=== PATIENT | male | born 1970 | race Caucasian/White ===

== ENCOUNTER 2016-08-03 12:23 | Observation (INO) ==
[2016-08-03] MEDS ORDERED: ZOFRAN IV ONE (12:50)
[2016-08-03] MEDS ORDERED: NS 1,000 ML IV ONE (12:50)
--- NOTE | 2016-08-03 12:58 | EKG Report ---
Test Performed on : 08/03/2016 12:42:34 PM Test Reason : CHEST PAIN Blood Pressure : / mmHG Vent. Rate : 074 BPM Atrial Rate : 074 BPM P-R Int : 154 ms QRS Dur : 076 ms QT Int : 406 ms P-R-T Axes : 076 073 083 degrees QTc Int : 450 ms Normal sinus rhythm. Septal infarct , age undetermined Abnormal ECG No previous ECGs available Unconfirmed Result
[2016-08-03 13:11] LABS: MANUAL DIFF NEEDED? NO
[2016-08-03 13:13] LABS: BASO% 0.7 % (0.0-0.8); EOS# 0.08 X1000 (0.0-0.7); EOS% 1.9 % (0.0-10.0); HEMATOCRIT 44.4 % (42.0-52.0); HEMOGLOBIN 15.3 g/dL (14.0-18.0); IMM GRAN# 0.02 X1000 (0.0-0.04); IMM GRAN% 0.5 % (0.0-0.5); LYMPH# 1.21 X1000 (1.2-3.4); LYMPH% 29.3 % (20.5-51.1); MCH 32.4 PG (27-31); MCHC 34.5 g/dL (33-37); MCV 94.1 FL (81-99); MONO# 0.24 X1000 (0.11-0.59); MONO% 5.8 % (1.7-9.3); MPV 9.4 FL (7.4-10.4); NEUT% 61.8 % (42.2-75.2); PLT 155 X1000 (130-400); RBC 4.72 XMIL (4.7-6.1)
[2016-08-03] MEDS ORDERED: NICODERM PATCH TD ONE (13:18)
--- NOTE | 2016-08-03 13:27 | Diag Imaging Result Doc PS360 ---
EXAM: CHEST-PORTABLE HISTORY: CP TECHNIQUE: Portable AP COMPARISON: None. FINDINGS: The lungs are hyperexpanded. The pulmonary vessels are small. There is scarring in the mid right lung. No cardiomegaly. No pneumonia. No pleural effusions identified. IMPRESSION: The lungs are hyperexpanded and the patient may have emphysema. Electronically signed by Rik Rodriguez 08/03/2016 1:25 PM
[2016-08-03 13:29] LABS: INR 0.88 (0.86-1.15); PROTIME 12.3 Seconds (12.1-15.5); PTT PL 29.8 Seconds (22.6-43.9)
[2016-08-03 13:33] LABS: AGAP 15; ALBUMIN 3.9 g/dL (3.5-5.0); ALKALINE PHOSPHATASE 74 U/L (32-122); BUN 8 mg/dL (8-22); CALCIUM 8.1 mg/dL (8.8-10.2); CHLORIDE 107 mmol/L (98-107); COSMO 295; GOT 202 U/L (10-34); GPT 121 U/L (10-44); LIPASE 69 U/L (13-60); MAGNESIUM 2.1 mg/dL (1.5-2.7); POTASSIUM 3.9 mmol/L (3.5-5.1); SODIUM 148 mmol/L (136-145); TCO2 27 mmol/L (25-35)
[2016-08-03 13:40] LABS: CK PROFILE 220 U/L (24-204)
[2016-08-03 13:59] LABS: CK INDEX 0.5 (0.0-2.5); CK-MB 1.14 ng/mL (0.0-5.0)
[2016-08-03 14:18] LABS: UR AMPHETAMINES QUAL NONE DETECTED (NONE DETECT); UR BARBITUATES QUAL NONE DETECTED (NONE DETECT); UR BENZODIAZEPIN QUAL NONE DETECTED (NONE DETECT); UR CANNABINOIDS QUAL NONE DETECTED (NONE DETECT); UR COCAINE QUAL NONE DETECTED (NONE DETECT); UR MDMA QUAL NONE DETECTED (NONE DETECT); UR METHADONE QUAL NONE DETECTED (NONE DETECT); UR METHAMPHETAMINE QUAL NONE DETECTED (NONE DETECT); UR OPIATES QUAL NONE DETECTED (NONE DETECT); UR OXYCODONE QUAL NONE DETECTED (NONE DETECT); UR PCP QUAL NONE DETECTED (NONE DETECT); UR TCA QUAL NONE DETECTED (NONE DETECT)
[2016-08-03 14:19] LABS: BILIRUBIN URINE NEGATIVE (NEGATIVE); BLOOD URINE NEGATIVE (NEGATIVE); CLARITY SL. CLOUDY (CLEAR); COLOR YELLOW; GLUCOSE URINE NEGATIVE (NEGATIVE); LEUKOCYTES URINE TRACE (NEGATIVE); NITRITE URINE NEGATIVE (NEGATIVE); PROTEIN URINE TRACE mg/dL (NEGATIVE); SP GRAVITY URINE 1.015; UROBILINOGEN URINE 4+(12 mg/dL)
[2016-08-03 14:28] LABS: URINE RBC <10 /HPF (<10); URINE WBC <10 /HPF (<10)
[2016-08-03 14:29] LABS: URINE CAST NONE SEEN /LPF; URINE CRYSTAL NONE SEEN /HPF; URINE CULTURE PL NEEDED? YES; URINE EPITHELIAL CELLS <10 /HPF (<10); URINE SOURCE CLEAN CATCH
--- NOTE | 2016-08-03 14:45 | Diag Imaging Result Doc PS360 ---
EXAM: ANGIOGRAM/PULMONARY ARTERIES - 08/03/2016 HISTORY: CP with elevated D-dimer TECHNIQUE: With intravenous contrast. Dose reduction protocol. COMPARISON: None. FINDINGS: There are no discrete pulmonary artery filling defects which are distinguishable for mild artifacts identified. There are severe bullous emphysematous changes, particularly at the right upper lobe. There is mild dependent atelectasis. There is no consolidation, pleural effusion, or pneumothorax identified. Included sections of upper abdomen show hepatomegaly with substantial fatty infiltration of the liver. The entire liver is not visible on the exam. IMPRESSION: No evidence of pulmonary embolism. Severe bullous emphysematous changes. No pneumonia. No pneumothorax. Hepatomegaly with substantial fatty infiltration of liver noted. Electronically signed by Wilner Dinh 08/03/2016 2:42 PM
--- NOTE | 2016-08-03 16:52 | PROVIDER DOCUMENTATION ---
This chart was entered by Majo Dotson Scribe, acting as scribe for Rashmi Frazier MD. HPI-Chest Pain - General Chief Complaint: Chest Pain Stated Complaint: chest pain,sob Time Seen by Provider: 08/03/16 12:50 Source: patient Allergies/Adverse Reactions: Patient Allergies Allergy/AdvReac Type Severity Reaction Status Date / Time No Known Allergies Allergy Verified 08/03/16 12:29 Home Medications: Home Medication List Medication Instructions Recorded Confirmed Last Taken Type Clonazepam [Klonopin] 1 mg PO TID 08/03/16 08/03/16 Unknown History Gabapentin [Neurontin] 600 mg PO TID 08/03/16 08/03/16 Unknown History Tramadol [Ultram] 50 mg PO BID 08/03/16 08/03/16 Unknown History - History of Present Illness-CP Nature of Presenting Problem: 46 yo M presents to the ER with complaint of L sided CP x3 days, states it is worse this morning. Pt states he drinks vodka daily, drank this morning. States he has L sided CP and his L arm and leg are numb. States he is from out of town visiting his sister here. Location: reports: other (L sided) Chest Pain Radiation: reports: no radiation Onset/Duration: 3 days ago Prior Chest Pain/Cardiac Workup: reports: no prior chest pain, no prior cardiac workup Review of Systems - Adult - REVIEW OF SYSTEMS - ADULT Constitutional: denies: chills, fever Eyes: reports: no symptoms reported Ears, Nose, Mouth & Throat: reports: no symptoms reported Cardiovascular: reports: chest pain. denies: palpitations Respiratory: denies: cough, shortness of breath Gastrointestinal: denies: diarrhea, nausea, vomiting Genitourinary: reports: no symptoms reported Musculoskeletal: reports: no symptoms reported Integumentary: reports: no symptoms reported Neurological: reports: no symptoms reported Psychiatric: reports: no symptoms reported Endocrine: reports: no symptoms reported Hematologic/Lymphatic: reports: no symptoms reported Allergic/Immunologic: reports: no symptoms reported All Other Systems: Reviewed and Negative Past History - Adult - PAST MEDICAL HISTORY-ADULT Review of Records: reports: Nursing Assessment Review, Medications Reviewed Respiratory: reports: asthma, COPD (emphysema) Endocrine/Immune: reports: hypoglycemia - IMMUNIZATION STATUS Childhood Immunizations: See Nurse Assessment Flu Vaccine: See Nurse Assessment - SOCIAL HISTORY Substance Use: alcohol Alcohol Use Frequency: every day Physical Exam-General - PHYSICAL EXAM-ADULT Initial Vital Signs Reviewed: Yes - CONSTITUTIONAL General Appearance: alert, no apparent distress, thin, other (intoxicated) - EYES Eyes: PERRL/EOMI, pink conjunctivae - HEAD, EARS, NOSE, MOUTH & THROAT HENMT: normocephalic/atraumatic, normal ENT inspection - NECK Neck: supple, normal inspection - RESPIRATORY Respiratory: no respiratory distress, no accessory muscle use - CARDIOVASCULAR Cardiovascular: normal peripheral pulses, regular rate, rhythm - GASTROINTESTINAL (ABDOMEN) Abdominal Exam: normal bowel sounds, non tender, soft - MUSCULOSKELETAL Back Exam: no CVA tenderness, no vertebral tenderness Extremity: normal gait, normal inspection - SKIN Integumentary: normal color, warm/dry - NEUROLOGIC Neurologic: grossly normal, no motor/sensory deficits - PSYCHIATRIC Psych/Mental Status: normal mood/affect, normal thought content, normal thought process, oriented x 3 Progress - PLAN OF CARE/RESULTS Progress/Plan/Lab Results: Vital Signs - 8 hr 08/03/16 12:29 08/03/16 13:31 08/03/16 14:51 Pulse Rate 86 56 L 52 L Respiratory Rate 20 17 17 Blood Pressure 134/81 127/82 112/68 O2 Sat by Pulse Oximetry 97 95 99 08/03/16 16:02 Pulse Rate 86 Respiratory Rate 16 Blood Pressure 105/66 O2 Sat by Pulse Oximetry 98 Laboratory Results - last 24 hr 08/03/16 08/03/16 08/03/16 12:10 12:10 12:10 WBC RBC Hgb Hct MCV MCH MCHC RDW Std Deviation Plt Count MPV Immature Gran % (Auto) Neut % (Auto) Lymph % (Auto) Gilchrist % (Auto) Eos % (Auto) Baso % (Auto) Immature Gran # (Auto) Neut # (Auto) Lymph # (Auto) Gilchrist # (Auto) Eos # (Auto) Baso # (Auto) PT INR APTT (Factor Assay) D-Dimer Sodium 148 H Potassium 3.9 Chloride 107 Carbon Dioxide 27 Anion Gap 15 BUN 8 Creatinine 0.5 L Estimated GFR/1.73 m2 > 60 BUN/Creatinine Ratio 16 Glucose 133 H Calculated Osmolality 295 Calcium 8.1 L Magnesium 2.1 Total Bilirubin 0.30 AST 202 H ALT 121 H Alkaline Phosphatase 74 Creatine Kinase 220 H Creatine Kinase Index 0.5 CK-MB (CK-2) 1.14 Troponin T < 0.010 [id number] Pept 6 Total Protein 7.0 Albumin 3.9 Globulin 3.0 Albumin/Globulin Ratio 1.0 Lipase 69 H Urine Source Urine Color Urine Clarity Urine pH Ur Specific F[place]ardo Urine Protein Urine Ketones Urine Blood Urine Nitrite Urine Bilirubin Urine Urobilinogen Urine Microscopic RBC Urine WBC Urine Microscopic WBC Ur Epithelial Cells Urine Crystals Urine Bacteria Urine Casts Urine Yeast Urine Glucose Urine Opiates Screen Ur Oxycodone Screen Urine Methadone Screen Ur Barbituates Screen Ur Tricyclics Screen Ur Phencyclidine Scrn Ur Amphetamines Screen U Methamphetamines Scrn Urine MDMA Screen U Benzodiazepines Scrn Urine Cocaine Screen U Cannabinoids Screen Plasma/Serum Ethyl Alc 08/03/16 08/03/16 08/03/16 12:10 12:10 13:55 WBC 4.13 L RBC 4.72 Hgb 15.3 Hct 44.4 MCV 94.1 MCH 32.4 H MCHC 34.5 RDW Std Deviation 15.5 H Plt Count 155 MPV 9.4 Immature Gran % (Auto) 0.5 Neut % (Auto) 61.8 Lymph % (Auto) 29.3 Gilchrist % (Auto) 5.8 Eos % (Auto) 1.9 Baso % (Auto) 0.7 Immature Gran # (Auto) 0.02 Neut # (Auto) 2.55 Lymph # (Auto) 1.21 Gilchrist # (Auto) 0.24 Eos # (Auto) 0.08 Baso # (Auto) 0.03 PT 12.3 INR 0.88 APTT (Factor Assay) 29.8 D-Dimer 4.57 H Sodium Potassium Chloride Carbon Dioxide Anion Gap BUN Creatinine Estimated GFR/1.73 m2 BUN/Creatinine Ratio Glucose Calculated Osmolality Calcium Magnesium Total Bilirubin AST ALT Alkaline Phosphatase Creatine Kinase Creatine Kinase Index CK-MB (CK-2) Troponin T [id number]-[id number] Pept Total Protein Albumin Globulin Albumin/Globulin Ratio Lipase Urine Source CLEAN CATCH Urine Color YELLOW Urine Clarity SL. CLOUDY A Urine pH 8.0 Ur Specific Fajardo 1.015 Urine Protein TRACE A Urine Ketones NEGATIVE Urine Blood NEGATIVE Urine Nitrite NEGATIVE Urine Bilirubin NEGATIVE Urine Urobilinogen 4+(12 mg/dL) Urine Microscopic RBC <10 Urine WBC TRACE A Urine Microscopic WBC <10 Ur Epithelial Cells <10 Urine Crystals NONE SEEN Urine Bacteria 1+ Urine Casts NONE SEEN Urine Yeast NONE SEEN Urine Glucose NEGATIVE Urine Opiates Screen Ur Oxycodone Screen Urine Methadone Screen Ur Barbituates Screen Ur Tricyclics Screen Ur Phencyclidine Scrn Ur Amphetamines Screen U Methamphetamines Scrn Urine MDMA Screen U Benzodiazepines Scrn Urine Cocaine Screen U Cannabinoids Screen Plasma/Serum Ethyl Alc 08/03/16 08/03/16 08/03/16 13:55 15:06 15:06 WBC RBC Hgb Hct MCV MCH MCHC RDW Std Deviation Plt Count MPV Immature Gran % (Auto) Neut % (Auto) Lymph % (Auto) Gilchrist % (Auto) Eos % (Auto) Baso % (Auto) Immature Gran # (Auto) Neut # (Auto) Lymph # (Auto) Gilchrist # (Auto) Eos # (Auto) Baso # (Auto) PT INR APTT (Factor Assay) D-Dimer Sodium Potassium Chloride Carbon Dioxide Anion Gap BUN Creatinine Estimated GFR/1.73 m2 BUN/Creatinine Ratio Glucose Calculated Osmolality Calcium Magnesium Total Bilirubin AST ALT Alkaline Phosphatase Creatine Kinase 194 Creatine Kinase Index CK-MB (CK-2) Troponin T < 0.010 Whp-U-Voeraqukitw Pept Total Protein Albumin Globulin Albumin/Globulin Ratio Lipase Urine Source Urine Color Urine Clarity Urine pH Ur Specific Fajardo Urine Protein Urine Ketones Urine Blood Urine Nitrite Urine Bilirubin Urine Urobilinogen Urine Microscopic RBC Urine WBC Urine Microscopic WBC Ur Epithelial Cells Urine Crystals Urine Bacteria Urine Casts Urine Yeast Urine Glucose Urine Opiates Screen NONE DETECTED Ur Oxycodone Screen NONE DETECTED Urine Methadone Screen NONE DETECTED Ur Barbituates Screen NONE DETECTED Ur Tricyclics Screen NONE DETECTED Ur Phencyclidine Scrn NONE DETECTED Ur Amphetamines Screen NONE DETECTED U Methamphetamines Scrn NONE DETECTED Urine MDMA Screen NONE DETECTED U Benzodiazepines Scrn NONE DETECTED Urine Cocaine Screen NONE DETECTED U Cannabinoids Screen NONE DETECTED Plasma/Serum Ethyl Alc 08/03/16 15:06 WBC RBC Hgb Hct MCV MCH MCHC RDW Std Deviation Plt Count MPV Immature Gran % (Auto) Neut % (Auto) Lymph % (Auto) Gilchrist % (Auto) Eos % (Auto) Baso % (Auto) Immature Gran # (Auto) Neut # (Auto) Lymph # (Auto) Gilchrist # (Auto) Eos # (Auto) Baso # (Auto) PT INR APTT (Factor Assay) D-Dimer Sodium Potassium Chloride Carbon Dioxide Anion Gap BUN Creatinine Estimated GFR/1.73 m2 BUN/Creatinine Ratio Glucose Calculated Osmolality Calcium Magnesium Total Bilirubin AST ALT Alkaline Phosphatase Creatine Kinase Creatine Kinase Index CK-MB (CK-2) Troponin T Kbn-N-Jkhivzbikxt Pept Total Protein Albumin Globulin Albumin/Globulin Ratio Lipase Urine Source Urine Color Urine Clarity Urine pH Ur Specific Fajardo Urine Protein Urine Ketones Urine Blood Urine Nitrite Urine Bilirubin Urine Urobilinogen Urine Microscopic RBC Urine WBC Urine Microscopic WBC Ur Epithelial Cells Urine Crystals Urine Bacteria Urine Casts Urine Yeast Urine Glucose Urine Opiates Screen Ur Oxycodone Screen Urine Methadone Screen Ur Barbituates Screen Ur Tricyclics Screen Ur Phencyclidine Scrn Ur Amphetamines Screen U Methamphetamines Scrn Urine MDMA Screen U Benzodiazepines Scrn Urine Cocaine Screen U Cannabinoids Screen Plasma/Serum Ethyl Alc 299 H Orders Category Date Time Status Cardiac Monitoring DIRECTED Care 08/03/16 12:50 Active Saline Loc NOW Care 08/03/16 12:50 Active ANGIOGRAM/PULMONARY ARTERIES [CT] Stat Exams 08/03/16 13:54 Completed CHEST-PORTABLE [RAD] Stat Exams 08/03/16 12:50 Completed ALCOHOL BLOOD Stat Lab 08/03/16 15:06 Completed CBC WITH ELECTRONIC DIFF [HEME] Stat Lab 08/03/16 12:10 Completed CK PROFILE [SP CHEM] Stat Lab 08/03/16 12:10 Completed CK PROFILE [SP CHEM] Stat Lab 08/03/16 15:06 Completed COMPREHENSIVE METABOLIC PANEL [CHEM] Stat Lab 08/03/16 12:10 Completed D-DIMER PL [COAG] Stat Lab 08/03/16 12:10 Completed LIPASE [CHEM] Stat Lab 08/03/16 12:10 Completed MAGNESIUM [CHEM] Stat Lab 08/03/16 12:10 Completed PRO B-NATRIURETIC PEPTIDE Stat Lab 08/03/16 12:10 Completed PROTIME WITH INR PL [COAG] Stat Lab 08/03/16 12:[address] [COAG] Stat Lab 08/03/16 12:10 Completed TROPONIN T Stat Lab 08/03/16 12:10 Completed TROPONIN T Stat Lab 08/03/16 15:[address] W/POSS RFLX CULT [URINALYSIS] Stat Lab 08/03/16 13:55 Completed URINE CULTURE [RM] Routine Lab 08/03/16 14:31 Ordered URINE DRUG SCREEN PL Stat Lab 08/03/16 13:55 Completed 0.9% Sodium Chloride Inj [Ns] 1,000 ml Med 08/03/16 12:50 Discontinued IV 999 mls/hr Nicotine Patch [Nicoderm Patch] Med 08/03/16 13:18 Discontinued 21 mg TD NOW ONE Ondansetron [Zofran] Med 08/03/16 12:50 Discontinued 4 mg IV NOW ONE EKG [EKG] Stat Ther 08/03/16 12:50 Draft US [Venous U/S Bilateral Legs] Stat Ther 08/03/16 15:06 Completed Result Diagrams: 08/03/16 12:10 08/03/16 12:10 - EKG 1 Time of EKG reading by physician:: 12:42 EKG Read and Signed by:: Rashmi Frazier EKG Interpretation (*Must complete 3 of following elements*): Abnormal (septal infarct, age undetermined) Rate: 74 Rhythm: normal sinus rhythm [place]: normal QRS: normal [place] Interval: normal ST Wave: normal Comments: septal infarct, age undetermined - CT/MRI 1 CT Study: Angiogram Impression: Normal (no evidence of PE. severe bullous emphysematous changes. no pneumonia. no pneumothorax. hepatomegaly with substantial fatty infiltration of liver noted. per radiologist) - CONSULTS/PCP/HOSPITALIST Notification #1 *Consult/PCP/Hospitalist*: Dr. Simon Time Discussed: 17:22 Consult Disposition: Will see in ED, Admit Departure - Departure Date of Disposition Decision: 08/03/16 Time of Disposition Decision: 17: DIAGNOSIS: ETOH abuse, Chest pain Disposition: ADMITTED INPATIENT 09 Certified Medical Emergency: Emergent Condition: Stable Referrals and Follow-Ups: None,PCP [Primary Care Provider] - - Critical Care Note This patient required my direct & personal management of CC.: No This chart was documented by the indicated scribe, (Majo Dotson Scribe) and accurately reflects the services I performed and decisions made by me, Rashmi Frazier MD, as attested by the provider's signature.
[2016-08-03] MEDS ORDERED: DUONEB (A & A) INH PRN (19:32)
[2016-08-03] MEDS: HUMALOG DOSE (PARKWAY) SUBQ SCH (21:19)
[2016-08-03] MEDS: ULTRAM PO SCH (21:37)
[2016-08-03] MEDS: NICODERM PATCH TD SCH (21:38)
[2016-08-04] MEDS ORDERED: M.V.I.-12 10 ML, FOLIC ACID 1 MG, MAGNESIUM SULFATE 1 GM, THIAMINE 100 MG in NS 1,000 ML IV ONE (06:00)
[2016-08-04 06:06] LABS: HEMATOCRIT 40.5 % (42.0-52.0); HEMOGLOBIN 13.7 g/dL (14.0-18.0); MCH 31.6 PG (27-31); MCHC 33.8 g/dL (33-37); MCV 93.5 FL (81-99); MPV 9.7 FL (7.4-10.4); RBC 4.33 XMIL (4.7-6.1)
[2016-08-04 06:13] LABS: HEMOGLOBIN A1C 5.1 % (4.8-6.0)
[2016-08-04] MEDS: HUMALOG DOSE (PARKWAY) SUBQ SCH ×3 (06:19→16:18)
[2016-08-04 06:27] LABS: AGAP 12; ALBUMIN 3.4 g/dL (3.5-5.0); ALKALINE PHOSPHATASE 67 U/L (32-122); BUN 5 mg/dL (8-22); CALCIUM 8.5 mg/dL (8.8-10.2); CHLORIDE 99 mmol/L (98-107); COSMO 276; GOT 151 U/L (10-34); GPT 103 U/L (10-44); MAGNESIUM 1.5 mg/dL (1.5-2.7); POTASSIUM 3.6 mmol/L (3.5-5.1); SODIUM 139 mmol/L (136-145); TCO2 28 mmol/L (25-35); TOTAL PROTEIN 6.2 g/dL (6.3-8.3)
--- NOTE | 2016-08-04 08:12 | Extremity Venous Study ---
Venous U/S Bilateral Legs - 08/03/2016 INDICATION: Elevated D-dimer TECHNIQUE: Bilateral lower extremity venous Doppler ultrasound COMPARISON: None FINDINGS: The deep veins are fully compressible. There is normal color and pulse wave Doppler signal. IMPRESSION: Negative exam. Electronically signed by Buck Campuzano 08/04/2016 8:10 AM
[2016-08-04] MEDS ORDERED: SYNTHROID PO SCH (08:38)
--- NOTE | 2016-08-04 09:17 | HISTORY AND PHYSICAL ---
PRIMARY CARE PHYSICIAN: None. CHIEF COMPLAINT: Chest pain, left-sided for 3 days that has progressively worsened. HISTORY OF PRESENTING ILLNESS: This is a 46-year-old, male, who presents to [facility] ER with complaints of left-sided chest pain for the past 3 days that has progressively worsened. States that it radiates with numbness to his left arm and leg. Rates his left-sided chest pain a 6/10. States the pain is intermittent. He is noted to drink alcohol and states that he drank a pint of vodka prior to arriving to the emergency room but that he typically only drinks 3-4 beers a day. He is actually here out of town visiting his sister and has had some increased stress, worried about a personal issue that is related to her. Workup in the ER showed a sodium of 148 an AST of 202, ALT 121. Lipase was 69. He was noted to have an elevated D-dimer at 4.57. A pulmonary arteriogram showed no evidence of a pulmonary emboli. He had severe bullous emphysematous changes, hepatomegaly with substantial fatty infiltration of the liver. A bilateral lower extremity venous Doppler was obtained that was negative. His cardiac enzymes x3 sets were negative. So, he was admitted for further evaluation and treatment. PAST MEDICAL HISTORY: COPD, hypothyroidism. PAST SURGICAL HISTORY: None. FAMILY HISTORY: Of cancer in his family and his dad has had a heart attack in his 70s. SOCIAL HISTORY: He lives alone. Again, he is here from out of town and [id number], visiting his sister. He is a half a pack a day smoker and has been so for the past 35 years. Drank 1 pint of vodka yesterday but states he drinks 3-4 beers daily and denied any illicit drug use. ALLERGIES: He has no known drug allergies. HOME MEDICATIONS: He takes Klonopin 1 mg p.o. t.i.d., Neurontin 600 mg p.o. t.i.d. and tramadol 50 mg p.o. b.i.d. LABORATORY DATA: Showed a white blood cell count of 4.13, a hemoglobin of 15.3, hematocrit 44.4, platelets 155,000, PT and INR of 12.3 and 0.88 with a D-dimer of 4.57. A sodium of 148, potassium 3.9, chloride 107, CO2 27, BUN of 8, creatinine 0.5, glucose 133, magnesium 2.1, total bilirubin was 0.30, AST 202, ALT 121, alkaline phosphatase of 74, creatine kinase of 220. CK-MB of 1.14, negative troponins x3 sets, lipase of 69. His TSH level is 15.35. Urinalysis was negative. Urine drug screen was negative and his serum alcohol level was 299. Chest x-ray showed the lungs were hyperexpanded and the patient had emphysema. EKG showed normal sinus rhythm. Pulmonary arteriogram showed no evidence of a pulmonary embolism, severe bullous emphysematous changes and no pneumonia and no pneumothorax, hepatomegaly with substantial fatty infiltration of the liver noted, bilateral lower extremity venous Doppler showed negative exam. REVIEW OF SYSTEMS: He denied any fever, chills, blurred vision, dizziness. He is positive for chest pain that radiates to his left arm and leg. Denied any shortness of breath, cough, abdominal pain, constipation, diarrhea, burning or hurting with urination. PHYSICAL EXAMINATION: VITAL SIGNS: On arrival, he had a pulse of 86, respirations 20, blood pressure 134/81, saturating 97% on 2 L via nasal cannula. GENERAL: This is a 46-year-old, male, who is lying in the bed, and answers questions appropriately. HEENT: Normocephalic and atraumatic. Pupils are equal, round, reactive to light. Extraocular movements are intact. Oropharynx and nares are clear. NECK: Supple. LUNGS: Clear to auscultation bilaterally with equal lung expansion and chest wall movement. HEART: Regular rate and rhythm. No murmurs, rubs, or gallops. ABDOMEN: Soft, nontender, nondistended. Bowel sounds are present x4 quadrants. EXTREMITIES: No clubbing, cyanosis, or edema. NEUROLOGICAL: The cranial nerves 2-12 are grossly intact. ASSESSMENT: 1. Chest pain. 2. Elevated liver function tests. 3. Elevated D-dimer. 4. Ethanol abuse. 5. Tobacco abuse. 6. Chronic obstructive pulmonary disease. 7. Hypothyroidism. PLAN: He was admitted, placed on telemetry. Regular diet. We are going to check a free T4, urine culture. We will check a CT angiogram of the heart. Continue his home medications. He was given a banana bag of fluids and recheck labs in the a.m. Dictated by RIDDHI Kramer for Jarett Simon MD cc: RIDDHI Kramer MD
[2016-08-04] MEDS: KLONOPIN PO SCH ×2 (09:32→12:55)
[2016-08-04] MEDS: NICODERM PATCH TD SCH (09:32)
[2016-08-04] MEDS: ULTRAM PO SCH (09:32)
[2016-08-04] MEDS: NEURONTIN PO SCH ×2 (09:32→12:54)
--- NOTE | 2016-08-04 10:30 | PROGRESS NOTE ---
DATE: 08/04/2016 SUBJECTIVE: The patient complains of his entire right arm being numb; notes that this has been present off and on for the past 3 days. Still having left-sided chest pain, although denies any waxing or waning of the pain. Still having some occasional nausea. OBJECTIVE: Vital Signs: Temperature 97, pulse 72, respiratory rate 19, BP 129/79, satting 100% on 2 L. General: Patient is awake, alert, frail-appearing male, who appears much older than his stated age of 46. Neck: Supple. CV: Regular rate. Chest: Clear. Abdomen: Soft. Extremities: Moves all extremities. No changes. LABS: CBC and CMP normal. D-dimer elevated at 4.57. AST and ALT both improving at 151 and 103. Three sets of cardiac enzymes are negative. TSH elevated at 15.3. ASSESSMENT: 1. Hypothyroidism, new onset. Will place on Synthroid. 2. Chest pain likely more gastritis secondary to his acute and chronic alcoholism. 3. Elevated D-dimer with a negative pulmonary arteriogram and no deep vein thrombosis. 4. Chronic alcoholism. The patient states that he has gone into withdrawal before; however, he states he does not drink on any regular basis. Certainly his liver functions would appear to be that of someone who does drink on a regular basis. He also has hepatomegaly with substantial fatty infiltrate noted on CT in a patient who is quite frail appearing, and weighs 129 at 5 feet 9 inches. PLAN: We will check a CTA of his chest; certainly expect that to be negative. Do not expect this to be his heart. Again, discussed with patient the perils of smoking due to his chronic obstructive pulmonary disease and the perils of alcoholism. Hopefully can discharge home prior to his alcohol withdrawal symptoms worsening. We will continue his Klonopin for now. cc: Jarett Simon MD
[2016-08-04 11:10] VITALS: BP 117/75
--- NOTE | 2016-08-04 16:51 | DISCHARGE SUMMARY ---
ADMISSION DATE: 08/03/2016 DISCHARGE DATE: 08/04/2016 PRIMARY CARE PHYSICIAN: None. ADMISSION DIAGNOSES: 1. Chest pain. 2. Elevated liver function tests. 3. Elevated D-dimer. 4. Ethanol abuse. 5. Tobacco abuse. 6. Chronic obstructive pulmonary disease. 7. Hypothyroidism. DISCHARGE DIAGNOSES: 1. Chest pain resolved. 2. Elevated liver function tests improved. 3. Elevated D-dimer, ruled out pulmonary embolus and deep venous thrombosis. 4. Ethanol abuse. 5. Tobacco abuse. 6. Chronic obstructive pulmonary disease. 7. Hypothyroidism. SUMMARY OF FINDINGS: This is a 46-year-old, male, who presented to the emergency room with complaints of left-sided chest pain for the past 3 days that had progressively worsened. He stated that it radiated to his left arm and leg with some numbness. He rated it a 6/10 but stated the pain was intermittent. He states that he drank a pint of vodka prior to arriving to the emergency room but typically only drinks 3-4 beers a day. He states that he is here out of town visiting his sister who is apparently homeless and lives in a tent in the [facility], and that he has had increased stress worried about those personal issues related to her. His workup in the ER showed a D-dimer of 4.57. Pulmonary arteriogram showed no pulmonary emboli. He had a lower extremity venous Doppler that showed no deep vein thrombosis. Cardiac enzymes times 3 sets were negative. An EKG showed normal sinus rhythm at 74. We attempted to set him up for a CTA of the heart today but our performing arts technicians is off and will not be available until Sunday so the patient will be discharged home with an order for an outpatient CTA for his chest pain. He has had no further chest pain since he arrived. He was noted to have some elevation in his blood pressure but it is currently at 117/75. This is most likely related to some anxiety and ETOH abuse, and it is felt that he can safely be discharged home today. DISCHARGE MEDICATIONS: He will continue his home medications of 1. Klonopin 1 mg p.o. t.i.d. 2. We gave him a prescription for gabapentin 600 mg p.o. t.i.d. and one for Synthroid 88 mcg p.o. daily #30 with 2 refills. 3. He will continue his tramadol 50 mg p.o. b.i.d. DISCHARGE INSTRUCTIONS: Patient was given an order for an outpatient CTA of the heart. All discharge instructions have been reviewed with the patient and he verbalizes understanding. Dictated by RIDDHI Kramer for Jarett Simon MD cc: RIDDHI Kramer MD
[2016-08-05] MEDS ORDERED: SYNTHROID PO SCH (07:00)
== END 2016-08-04 16:35 | disposition home or self-care (01) ==
LOC: P.ED 12:23 → P.MEDSURG 12:23
PROVIDERS: ATTEND Family Medicine